=== PATIENT | female | born 1995 | race Caucasian/White ===

== ENCOUNTER 2018-05-04 02:20 | Inpatient (IN) | payer OTHER ==
[2018-05-04] MEDS ORDERED: ACETAMINOPHEN 325 MG TAB PO ×2 (04:30→05:30)
[2018-05-04] MEDS ORDERED: NACL 0.9% 3 ML SYG IV (05:30)
[2018-05-04] MEDS: PANTOPRAZOLE (EC) 40 MG TAB PO (06:28)
[2018-05-04 06:41] LABS: ADD MAN DIFF? NO
[2018-05-04 06:47] LABS: WHITE BLOOD COUNT 7.1 10^3/ul (4.8-10.8)
[2018-05-04 06:47] LABS: BASOPHILS % 0.4 % (0.0-2.0); EOSINOPHILS # 0.1 10^3/ul (0.0-0.5); EOSINOPHILS % 0.7 % (0.0-7.0); HEMATOCRIT 36.7 % (37.0-47.0); HEMOGLOBIN 12.5 g/dl (12.0-16.0); LYMPHOCYTES # 2.1 10^3/ul (0.8-2.9); LYMPHOCYTES % 29.8 % (15.0-51.0); MEAN CORPUSCULAR HEMOGLOBIN 33.5 pg (29.0-33.0); MEAN CORPUSCULAR HGB CONC 34.1 g/dl (32.0-37.0); MEAN CORPUSCULAR VOLUME 98.4 fl (82.0-101.0); MEAN PLATELET VOLUME 10.8 fl (7.4-10.4); MONOCYTE # 0.5 10^3/ul (0.3-0.9); MONOCYTES % 6.9 % (0.0-11.0); NEUTROPHIL # 4.4 10^3/ul (1.6-7.5); NEUTROPHILS % 61.9 % (39.0-77.0); PLATELET COUNT 518 10^3/UL (140-415); RED BLOOD COUNT 3.73 10^6/ul (4.20-5.40); RED CELL DISTRIBUTION WIDTH 13.3 % (11.5-14.5)
[2018-05-04 07:04] LABS: HEMOGLOBIN A1C 4.8 % (0-5.9)
[2018-05-04 07:26] LABS: ALANINE AMINOTRANSFERASE 17 IU/L (13-69); ALBUMIN 3.4 g/dl (3.3-4.9); ALBUMIN/GLOBULIN RATIO 0.97; ALKALINE PHOSPHATASE 66 IU/L (42-121); ANION GAP 9 (5-13); ASPARTATE AMINO TRANSFERASE 54 IU/L (15-46); BILIRUBIN,INDIRECT 0.3 mg/dl (0-1.1); BILIRUBIN,TOTAL 0.3 mg/dl (0.2-1.3); BLOOD UREA NITROGEN 9 mg/dl (7-20); CALCIUM 9.6 mg/dl (8.4-10.2); CARBON DIOXIDE 26 mmol/L (21-31); CHLORIDE 107 mmol/L (97-110); CHOL/HDL RATIO 3.3 RATIO; CHOLESTEROL 146 mg/dl (100-200); CREATININE 0.63 mg/dl (0.44-1.00); Estimated GFR > 60 mL/min (>60); GLUCOSE 99 mg/dl (70-220); HDL CHOLESTEROL 43 mg/dl (33-83); LDL CHOLESTEROL,CALCULATED 88 mg/dl; POTASSIUM 4.4 mmol/L (3.5-5.1); SODIUM 142 mmol/L (135-144); TOTAL PROTEIN 6.9 g/dl (6.1-8.1); TRIGLYCERIDES 75 mg/dl (0-149)
[2018-05-04 07:35] LABS: CK-MB < 0.22 ng/ml (0.0-2.4); TROPONIN-I < 0.012 ng/ml (0.000-0.120)
[2018-05-04] MEDS: FOLIC ACID 1 MG TAB PO (08:07)
[2018-05-04] MEDS: ASPIRIN (EC) 81 MG TAB PO (08:08)
[2018-05-04] MEDS: ENOXAPARIN 40 MG/0.4 ML SYG SC (08:15)
[2018-05-04] MEDS: ONDANSETRON 4 MG INJ IV (08:49)
[2018-05-04] MEDS: HYDROXYUREA 500 MG CAP PO (09:02)
[2018-05-04] MEDS ORDERED: ATORVASTATIN 20 MG TAB PO (21:00)
== END 2018-05-04 13:16 | disposition home or self-care (01) | DRG 103 ==
LOC: TEL 02:20
DX: G43.909 Migraine, unspecified, not intractable, without status migrainosus (principal); J45.909 Unspecified asthma, uncomplicated; D47.3 Essential (hemorrhagic) thrombocythemia
CPT/HCPCS: 80053; 80061; 82553; 83036; 84443; 84484; 85025; 92610; 93306; 97162